=== PATIENT | male | born 1995 | race Caucasian/White ===

== ENCOUNTER 2018-04-16 16:14 | Emergency (ER) | payer SELFPAY ==
[~2018-04-16] VITALS: Ht 175.3 cm; Wt 59.6 kg
[2018-04-16 16:51] VITALS: Ht 175.3 cm; Wt 59.6 kg
[2018-04-16 17:07] VITALS: BP 116/69
== END 2018-04-16 17:08 | disposition home or self-care (01) ==
LOC: ED 16:14
DX: H60.91 Unspecified otitis externa, right ear (principal)

== ENCOUNTER 2018-10-23 14:05 | Emergency (ER) | payer MEDICAID ==
[~2018-10-23] VITALS: Ht 172.7 cm; Wt 61.2 kg
[2018-10-23 14:09] VITALS: Ht 172.7 cm; Wt 61.2 kg
[2018-10-23 16:17] VITALS: BP 126/81
== END 2018-10-23 16:17 | disposition home or self-care (01) ==
LOC: ED 14:05
DX: B35.6 Tinea cruris (principal)

== ENCOUNTER 2019-06-04 15:05 | Emergency (ER) | payer MEDICAID ==
[~2019-06-04] VITALS: Ht 175.3 cm; Wt 60.3 kg
[2019-06-04 16:08] VITALS: Ht 175.3 cm; Wt 60.3 kg
[2019-06-04 20:22] VITALS: BP 128/78
== END 2019-06-04 20:22 | disposition home or self-care (01) ==
LOC: ED 15:05
DX: S02.2XXA Fracture of nasal bones, initial encounter for closed fracture (principal); Y04.8XXA Assault by other bodily force, initial encounter; Y93.89 Activity, other specified; Y92.89 Other specified places as the place of occurrence of the external cause; Y99.8 Other external cause status